=== PATIENT | male | born 1950 ===

== ENCOUNTER 2018-01-23 10:00 | Emergency (ER) | payer MEDICARE, MEDICAID ==
[2018-01-23 10:11] VITALS: BMI 28.1
[2018-01-23 10:16] VITALS: RESP 18; O2SAT 99
[2018-01-23] MEDS ORDERED: Sodium Chloride 0.9% 1,000 ML IV ONE (10:59)
--- NOTE | 2018-01-23 11:07 | C.PDOC ---
History Of Present Illness 67 year old male presents to the ER with a complaint of generalized weakness and gradual onset headache associated with neck pain, face and feet numbness, and blurred vision that began earlier today. Denies chest pain, nausea, vomiting , SOB, or focal weakness. Time Seen by Provider: 01/23/18 10:20 Chief Complaint (Nursing): Headache History Per: Patient History/Exam Limitations: no limitations Onset/Duration Of Symptoms: Hrs Current Symptoms Are (Timing): Still Present Preceeding Symptoms: None Associated Symptoms: Blurred Vision. denies: Photophobia, Nausea, Vomiting, Extremity Weakness Recent travel outside of the [place]: No Past Medical History Reviewed: Historical Data, Nursing Documentation, Vital Signs Vital Signs: Last Vital Signs Temp 98.3 F 01/23/18 12:39 Pulse 59 L 01/23/18 12:39 Resp 18 01/23/18 12:39 BP 123/75 01/23/18 12:39 Pulse Ox 99 01/23/18 12:39 - Medical History PMH: Asthma, COPD, Emphysema, Gastritis, HTN, Pneumonia Denies: Alzheimer's Disease, Anemia, Anxiety, Arthritis, Bipolar Disorder, Bronchitis, Cardia Arrhythmia, CHF, Colonic Polyps, Crohn's Disease, Dementia, Depression, Diverticulitis, Fibromyalgia, Fractures, Gall Bladder Disease, HIV, Hypercholesterolemia, Hyperthyroidism, Hypothyroidism, Kidney Stones, Migraine, Mitral Valve Prolapse, Multiple Sclerosis, Osteoporosis, Pancreatitis, Paranoia , Parkinson's Disease, Peripheral Edema, Post Traumatic Stress Disorder, Pulmonary Embolism, Chronic Kidney Disease, Rheumatoid Arthritis, Schizophrenia , Seizures, Sickle Cell Disease, Sexually Transmitted Disease, Sleep Apnea, TIA Surgical History: Denies: Appendectomy, CABG, Carotid Endarterectomy, Cholecystectomy, Coronary Stent, Endoscopy, Pacemaker, Tonsillectomy - [facility] Procedures ENDOSC POLYPECTOMY OF LG INTEST (03/12/14) FIBER-OPTIC BRONCHOSCOPY (01/13/14) INJECT INTO THORAX CAVIT (01/13/14) INSERT INTERCOSTAL CATH (07/19/13) SCARIFICATION OF PLEURA (07/19/13) THORACOSCOPIC EXCISION OF LESION OR TISSUE OF LUNG (07/19/13) TRANSPLEURA THORACOSCOPY (01/13/14) Family History: States: Unknown Family Hx - Social History Hx Tobacco Use: No Hx Alcohol Use: No Hx Substance Use: No - Immunization History Hx Tetanus Toxoid Vaccination: No Hx Influenza Vaccination: No Hx Pneumococcal Vaccination: No Review Of Systems Constitutional: Positive for: Weakness. Negative for: Fever, Chills Eyes: Positive for: Other (Blurred vision). Negative for: Vision Change Cardiovascular: Negative for: Chest Pain Respiratory: Negative for: Shortness of Breath Gastrointestinal: Negative for: Nausea, Vomiting Musculoskeletal: Positive for: Neck Pain Neurological: Positive for: Numbness (Face and feet but not unilateral), Headache. Negative for: Weakness Physical Exam - Physical Exam Appears: Non-toxic Skin: Normal Color, Warm, Dry Head: Atraumatic, Normacephalic Eye(s): bilateral: Normal Inspection, PERRL, EOMI Nose: Normal Neck: Normal, No Midline Cervical Tenderness, No Paracervical Tenderness, Supple Chest: Symmetrical, No Tenderness Cardiovascular: Rhythm Regular Respiratory: Normal Breath Sounds, No Rales, No Rhonchi, No Wheezing Gastrointestinal/Abdominal: Soft, No Tenderness Back: No CVA Tenderness Neurological/Psych: Oriented x3, Normal Speech, Normal Cognition, Normal Cranial Nerves, Normal Motor, Normal Sensation, Normal Reflexes Gait: Steady ED Course And Treatment - Laboratory Results Result Diagrams: 01/23/18 11:20 01/23/18 11:20 O2 Sat by Pulse Oximetry: 99 (Room air) Pulse Ox Interpretation: Normal Medical Decision Making Medical Decision Making: Blood work, CT head, EKG, CXR, and urinalysis ordered. IV fluids administered. headache musculoskeletal pain patient states improvement, reviewed results, will discharge patient home to follow up with pmd within 2 days Disposition - Disposition Disposition: HOME/ ROUTINE Disposition Time: 13:15 Condition: STABLE Additional Instructions: follow up with your doctor within 2 days call to make an appointment take pain medication as prescribed return to ER if symptoms worsens or progress Prescriptions: Naproxen [Naprosyn] 500 mg PO BID PRN #16 tab PRN Reason: Pain, Moderate (4-7) Instructions: Headache, Adult (DC), Muscle and Bone Pain (DC) Forms: [facility] (Green[place]ic), General Discharge Instructions - Clinical Impression Clinical Impression: Headache, Muscle ache - PA / PATHOLOGY SECRETARY / Resident Statement MD/DO has reviewed & agrees with the documentation as recorded. - Scribe Statement The provider has reviewed the documentation as recorded by the Scribe Joaquim Quintana All medical record entries made by the Scribe were at my direction and personally dictated by me. I have reviewed the chart and agree that the record accurately reflects my personal performance of the history, physical exam, medical decision making, and the department course for this patient. I have also personally directed, reviewed, and agree with the discharge instructions and disposition.
[2018-01-23] MEDS ORDERED: Sodium Chloride 0.9% 1,000 ML ONE (11:22)
[2018-01-23 11:24] LABS: BASO # 0.1 K/uL (0.0-0.2); BASO % 1.8 % (0.0-2.0); EOS # 0.4 K/uL (0.0-0.7); HEMOGLOBIN 13.7 g/dL (12.0-18.0); LYMPH # 1.9 K/uL (1.0-4.3); MEAN CELL VOLUME 92.3 fL (80.0-94.0); MEAN CORPUSCULAR HEMOGLOBIN 32.4 pg (27.0-31.0); MEAN CORPUSCULAR HGB CONC 35.1 g/dL (33.0-37.0); MEAN PLATELET VOLUME 8.6 fL (7.2-11.7); MONO # 0.4 K/uL (0.0-0.8); NEUT # 2.6 K/uL (1.8-7.0); NEUT % 48.2 % (50.0-75.0); NRBC % 0.1 % (0.0-2.0); RBC 4.21 Mil/uL (4.40-5.90); RED CELL DISTRIBUTION WIDTH 13.3 % (11.5-14.5); WHITE BLOOD COUNT 5.4 K/uL (4.8-10.8)
[2018-01-23 11:38] LABS: ALB/GLOB RATIO 1.3 (1.0-2.1); ALBUMIN 3.7 g/dL (3.5-5.0); ALT/SGPT 91 U/L (21-72); AST/SGOT 59 U/L (17-59); BLOOD UREA NITROGEN 17 mg/dL (9-20); CALCIUM 9.4 mg/dl (8.6-10.4); GFR NON-AFRICAN AMERICAN > 60
--- NOTE | 2018-01-23 12:07 | RAD ---
HISTORY: SOB COMPARISON: Chest x-ray performed 01/25/15 TECHNIQUE: Chest, one view. FINDINGS: Examination limited by habitus. LUNGS: Biapical pleural thickening. Minimal basilar atelectasis. Stable appearing atelectasis, middle lobe atelectasis. Please note that chest x-ray has limited sensitivity for the detection of pulmonary masses. PLEURA: No significant pleural effusion identified. No definite pneumothorax . CARDIOVASCULAR: Cardiomegaly. OSSEOUS STRUCTURES: Degenerative changes. VISUALIZED UPPER ABDOMEN: Unremarkable. OTHER FINDINGS: None. IMPRESSION: Biapical pleural thickening. Minimal basilar atelectasis. Stable appearing atelectasis, right middle lobe. Cardiomegaly.
--- NOTE | 2018-01-23 12:12 | CT ---
Date of service: 01/23/2018 PROCEDURE: CT HEAD WITHOUT CONTRAST. HISTORY: dizziness COMPARISON: None available. TECHNIQUE: Axial computed tomography images were obtained through the head/brain without intravenous contrast. Radiation dose: Total exam DLP = 1007.63 mGy-cm. This CT exam was performed using one or more of the following dose reduction techniques: Automated exposure control, adjustment of the mA and/or kV according to patient size, and/or use of iterative reconstruction technique. FINDINGS: Streak artifact obscures evaluation of the skullbase. HEMORRHAGE: No intracranial hemorrhage. BRAIN: Diffuse atrophy with prominence of the ventricles and sulci noted. No mass effect or edema. Bilateral basal ganglia calcifications. Mild scattered white matter hypodensities, which are nonspecific, but often seen with chronic microvascular ischemic disease. Please note that MRI with diffusion imaging is more sensitive in the detection of acute ischemic event. VENTRICLES: No hydrocephalus. CALVARIUM: Unremarkable. PARANASAL SINUSES: Unremarkable as visualized. No significant inflammatory changes. MASTOID AIR CELLS: Unremarkable as visualized. No inflammatory changes. OTHER FINDINGS: None. IMPRESSION: No acute intracranial pathology identified. Findings as above.
[2018-01-23 12:40] VITALS: BP 123/75; PULSE 59; TEMP 98.3
[2018-01-23 12:48] LABS: URINE BILIRUBIN NEGATIVE (NEGATIVE); URINE BLOOD NEGATIVE (NEGATIVE); URINE CLARITY Clear (Clear); URINE COLOR Yellow (YELLOW); URINE GLUCOSE (UA) NORMAL (Normal); URINE LEUKOCYTE ESTERASE NEG Leu/uL (Negative); URINE PROTEIN NEGATIVE (NEGATIVE); URINE UROBILINOGEN NORMAL mg/dL (0.2-1.0)
--- NOTE | 2018-01-24 21:45 | CARD ---
APPROVED REPORT Date of service: 01/23/2018 EKG Measurement Heart [id number] <Conclusion> Normal sinus rhythm Normal ECG
== END 2018-01-23 13:33 | disposition home or self-care (01) ==
LOC: C.ER 10:00
DX: R51 Headache (principal); M79.1 Myalgia
CPT/HCPCS: 70450; 71045; 80053; 81001; 82550; 82948; 83735; 84443; 84484; 85025; 93005; 99285; J7030

== ENCOUNTER 2018-04-01 08:27 | Emergency (ER) | payer MEDICARE, MEDICAID ==
[2018-04-01 08:27] VITALS: BMI 28.1
[2018-04-01 08:53] VITALS: BP 136/71; PULSE 70; RESP 18; TEMP 97.7; O2SAT 98
--- NOTE | 2018-04-01 10:22 | C.PDOC ---
History Of Present Illness 67 year old male presents to the ED complaining of right knee pain that radiates to right thigh with associated swelling and warmth for one month. Denies any weakness or numbness. Denies any trauma or injuries. Reports it is difficult to bear weight and rates the pain 8/10. Time Seen by Provider: 04/01/18 09:17 Chief Complaint (Nursing): Lower Extremity Problem/Injury History Per: Patient History/Exam Limitations: no limitations Onset/Duration Of Symptoms: Days Current Symptoms Are (Timing): Still Present Pain Scale Rating Of: 8 Past Medical History Reviewed: Historical Data, Nursing Documentation, Vital Signs Vital Signs: Last Vital Signs Temp 97.7 F 04/01/18 08:49 Pulse 70 04/01/18 08:49 Resp 18 04/01/18 08:49 BP 136/71 04/01/18 08:49 Pulse Ox 98 04/01/18 08:49 - Medical History PMH: Asthma, COPD, Emphysema, Gastritis, HTN, Pneumonia Denies: Alzheimer's Disease, Anemia, Anxiety, Arthritis, Bipolar Disorder, Bronchitis, Cardia Arrhythmia, CHF, Colonic Polyps, Crohn's Disease, Dementia, Depression, Diverticulitis, Fibromyalgia, Fractures, Gall Bladder Disease, HIV, Hypercholesterolemia, Hyperthyroidism, Hypothyroidism, Kidney Stones, Migraine, Mitral Valve Prolapse, Multiple Sclerosis, Osteoporosis, Pancreatitis, Paranoia, Parkinson's Disease, Peripheral Edema, Post Traumatic Stress Disorder, Pulmonary Embolism, Chronic Kidney Disease, Rheumatoid Arthritis, Schizophrenia, Seizures, Sickle Cell Disease, Sexually Transmitted Disease, Sleep Apnea, TIA Surgical History: Denies: Appendectomy, CABG, Carotid Endarterectomy, Cholecystectomy, Coronary Stent, Endoscopy, Pacemaker, Tonsillectomy Other Surgeries: Hx of surgeries - [facility] Procedures ENDOSC POLYPECTOMY OF LG INTEST (03/12/14) FIBER-OPTIC BRONCHOSCOPY (01/13/14) INJECT INTO THORAX CAVIT (01/13/14) INSERT INTERCOSTAL CATH (07/19/13) SCARIFICATION OF PLEURA (07/19/13) THORACOSCOPIC EXCISION OF LESION OR TISSUE OF LUNG (07/19/13) TRANSPLEURA THORACOSCOPY (01/13/14) Family History: States: No Known Family Hx - Social History Hx Tobacco Use: No Hx Alcohol Use: Yes Hx Substance Use: No - Immunization History Hx Tetanus Toxoid Vaccination: No Hx Influenza Vaccination: No Hx Pneumococcal Vaccination: No Review Of Systems Except As Marked, All Systems Reviewed And Found Negative. Musculoskeletal: Positive for: Other (right knee pain radiating to thigh ) Neurological: Negative for: Weakness, Numbness Physical Exam - Physical Exam Appears: Non-toxic, No Acute Distress Skin: Warm, Dry, No Rash Head: Normacephalic Eye(s): bilateral: Normal Inspection Oral Mucosa: Moist Neck: Normal ROM, Supple Chest: Symmetrical Cardiovascular: Rhythm Regular Respiratory: No Rales, No Rhonchi, No Wheezing Extremity: Normal ROM, Capillary Refill (less than 2 sec to right knee), No Deformity, Swelling (right knee ), Other (warmth to medial aspect of right knee) Extremity: Bilateral: Atraumatic, Normal Color And Temperature, Normal ROM Neurological/Psych: Oriented x3, Normal Speech, Normal Motor, Normal Sensation, Normal Reflexes Gait: Steady ED Course And Treatment O2 Sat by Pulse Oximetry: 98 (RA) Pulse Ox Interpretation: Normal - Other Rad XR right knee X-Ray: Viewed By Me, Read By Radiologist Interpretation: Accession No. : [id number]. Patient Name / ID : VLADIMIR TAYLOR / [id number]. Exam Date : 04/01/2018 09:50:59 ( Approved ). Study Comment : Sex / Age : M / 67Y. Creator : Vin Fan MD. Dictator : Vin Fan MD. Middle School Professional : Cell Cleaner : Vin Fan MD. Approver2 : Report Date : 04/01/2018 10:55:31. My Comment : . Date of service: The. 04/01/2018. PROCEDURE: Right Knee Radiographs. HISTORY: right knee pain X 1 month. COMPARISON: None. FINDINGS: BONES: Normal. No fracture. JOINTS: Normal. No osteoarthritis. JOINT EFFUSION: Small suprapatellar joint effusion felt be present. OTHER FINDINGS: None. IMPRESSION: No evidence of acute displaced fracture nor dislocation. Small suprapatellar Medical Decision Making Medical Decision Making: Plan - Tylenol 975mg PO - Motrin 600mg PO - Right knee XR Results: - Right knee XR shows small bony spicules consistent with osteoarthritis. Disposition Counseled Patient/Family Regarding: Studies Performed, Diagnosis, Need For Followup, Rx Given - Disposition Referrals: Yi Verdugo MD [Medical Doctor] - Ted Begum MD [Staff Provider] - Disposition: HOME/ ROUTINE Disposition Time: 10:20 Condition: STABLE Prescriptions: Ibuprofen [Motrin] 600 mg PO TID #15 tab Instructions: Osteoarthritis Forms: [facility] (Citizen [place]), Gen Discharge Inst [place] - POA Present On Arrival: None - Clinical Impression Clinical Impression: Arthritis, Joint pain - Scribe Statement The provider has reviewed the documentation as recorded by the Scribe Nadiya Mohan All medical record entries made by the Scribe were at my direction and personally dictated by me. I have reviewed the chart and agree that the record accurately reflects my personal performance of the history, physical exam, medical decision making, and the department course for this patient. I have also personally directed, reviewed, and agree with the discharge instructions and disposition.
--- NOTE | 2018-04-01 10:59 | RAD ---
Date of service: The 04/01/2018 PROCEDURE: Right Knee Radiographs. HISTORY: right knee pain X 1 month COMPARISON: None. FINDINGS: BONES: Normal. No fracture. JOINTS: Normal. No osteoarthritis. JOINT EFFUSION: Small suprapatellar joint effusion felt be present. OTHER FINDINGS: None. IMPRESSION: No evidence of acute displaced fracture nor dislocation. Small suprapatellar
== END 2018-04-01 10:38 | disposition home or self-care (01) ==
LOC: C.ER 08:27
DX: M25.561 Pain in right knee (principal); M17.11 Unilateral primary osteoarthritis, right knee; I10 Essential (primary) hypertension